=== PATIENT | female | born 1980 | race Caucasian/White ===

== ENCOUNTER 2023-11-06 22:49 | Emergency (ER) | payer OTHER, SELFPAY ==
[2023-11-06 22:54] VITALS: BP 148/93
[2023-11-06 23:01] VITALS: BP 184/145
[2023-11-06 23:04] LABS: Glucose - Point of Care 321 mg/dl (70-99)
[2023-11-06] MEDS: ZOFRAN 4 MG IV (23:14)
[2023-11-06] MEDS: NSS 500 IV (23:15)
[2023-11-06 23:16] LABS: % Basophils 0.3 % (0-2); % Immature Granulocytes 1.1 % (0-0.5); % Lymphocytes 17.9 % (20.5-51.1); % Monocytes 3.9 % (1.7-9.3); % Neutrophils 76.8 % (42.2-75.2); Absolute Immature Granulocytes 0.1 10^3/uL (0-0.05); Absolute Lymphocytes 1.1 10^3/uL (1.2-3.4); Absolute Monocytes 0.2 10^3/uL (0.1-0.6); Absolute Neutrophils 4.8 10^3/uL (1.4-6.5); Hematocrit 48.9 % (37.0-47.0); Hemoglobin 15.8 g/dL (12.0-16.0); Mean Corp Hgb Conc. 32.3 g/dL (33.0-37.0); Mean Corpuscular Hgb 28.8 pg (27.0-31.0); Mean Corpuscular Volume 89.2 fL (81.0-99.0); Mean Platelet Volume 9.6 fL (7.4-10.4); Nucleated Red Blood Cells % 0 %; Platelet Count 523 10^3/uL (130-400); Red Blood Cell Count 5.48 10^6/uL (4.20-5.40); Red Cell Dist. Width 13.2 % (11.5-14.5); White Blood Cell Count 6.2 10^3/uL (4.8-10.8)
--- NOTE | 2023-11-06 23:19 | ED.GENMED ---
History of Present Illness
<MIGUEL Dixon - Last Filed: 11/07/23 05:04>
General
Chief Complaint: Abdominal Symptoms
Source: patient
Exam Limitations: none
Time Seen by Provider: 11/06/23 23:00
History of Present Illness
History of Present Illness:
43 y/o F with history of [place] presents to ED complaining of nausea and vomiting x 3 days. She reports the vomiting has subsided but she is still feeling nauseous. Patient has been taking Promethazine and Tylenol suppositories for her symptoms.
She also has been drinking water, Gatorade and juice. She reports she took 3L of coca cola around 1930 today to help with nausea and started with shaking and diarrhea. She reports she is having BM in her diaper every 10-15 minutes. She took 20mg of
hydrocortisone around 1900. Patient is also feeling congested and reports her ears feel clogged. She also reporting associated headache. She reports her son was sick with nausea, vomiting and diarrhea a few days ago. Denies dizziness, blurry vision,
or abdominal pain.
If applicable-neuro sx onset
Onset of symptoms known: Yes
Date of onset of symptoms: 11/03/23
Past History
<MIGUEL Dixon - Last Filed: 11/07/23 05:04>
Past History
ED Past Medical History: Other (Addisons)
ED Past Surgical History: Gynecological
Social History
Tobacco: Non-smoker
Alcohol: None
Review of Systems
<MIGUEL Dixon - Last Filed: 11/07/23 05:04>
Review of Systems
Allergies reviewed?: Yes
All Other Systems: ROS reviewed and negative except as documented in HPI and ROS
Constitutional: Reports chills
EENT: Reports other (congestion)
Respiratory: Reports no symptoms
Cardiac: Reports no symptoms
ABD/GI: Reports nausea, vomiting and diarrhea
: Reports frequency and incontinence
Musculoskeletal: Reports no symptoms
Skin: Reports no symptoms
Neurological: Reports headache
Endocrine: Reports polyuria
Hematologic/Lymphatic: Reports no symptoms
Psychiatric: Reports no symptoms
Phy Exam
<MIGUEL Dixon - Last Filed: 11/07/23 05:04>
General Physical Exam
General Presentation: well appearing and no apparent distress
General age: appears stated age
General Skin: warm and dry
General Habitus: normal
General Mental: alert
General Hydration: appears well hydrated
ENT Exam
ENT Exam: EOMI, TM's normal, pharynx normal and neck supple
Eye Exam
Eye Exam: PERRL, EOMI and conjunctiva normal
Cardiovascular Exam
Cardiovascular Exam: regular rate/rhythm, no edema, no gallop, no murmur and normal peripheral pulses
Pulmonary Exam
Pulmonary Exam: lungs clear, no respiratory distress, no rales, no crackles and no rhonchi
Gastrointestinal Exam
Gastrointestinal Exam: normal bowel sounds, non tender, soft and non distended
Neurological Exam
Neurological Exam: alert and oriented x3
Musculoskeletal Exam
Musculoskeletal Exam: full ROM
Skin Exam
Skin Exam: normal color, warm/dry and no rash
Psychiatric Exam
Psychiatric Exam: anxious
Course
<MIGUEL Dixon - Last Filed: 11/07/23 05:04>
Orders/Labs/Results
Orders:
Orders
11/06/23 23:03
Electrocardiogram (*1) Urgent
Reason for Study: Tachycardia
EKG- Treatment ONCE
11/06/23 23:06
B-Hydroxybutyrate Urgent
Complete Blood Count/With Diff Urgent
Comprehensive Metabolic Panel Urgent
HCG, Serum Qualitative Screen Urgent
11/06/23 23:08
0.9% Sodium Chloride 500 ml [Nss] 500 ml IV BOLUS
Ondansetron Injectable [Zofran] 4 mg IV NOW STA
Test Result ONCE
11/06/23 23:09
Urinalysis Reflex To Culture Urgent
11/06/23 23:18
Troponin I Urgent
11/06/23 23:43
TSH Reflex To Free T4 Urgent
11/07/23 02:52
Complete Blood Count/With Diff Urgent
Comprehensive Metabolic Panel Urgent
11/07/23 05:15
Prednisone [Deltasone] 50 mg PO NOW STA
Abnormal Lab Results
11/06/23 11/06/2324
23:02 23:06 02:52
RBC 5.48 H 10^6/uL 3.84 L 10^6/uL
(4.20-5.40) (4.20-5.40)
Hgb 11.1 L D g/dL
(12.0-16.0)
Hct 48.9 H % 33.5 L %
(37.0-47.0) (37.0-47.0)
MCHC 32.3 L g/dL
(33.0-37.0)
Plt Count 523 H 10^3/uL
(130-400)
Abs Immat Gran (auto) 0.1 H 10^3/uL 0.1 H 10^3/uL
(0-0.05) (0-0.05)
Absolute Lymphs (auto) 1.1 L 10^3/uL 0.8 L 10^3/uL
(1.2-3.4) (1.2-3.4)
Immature Gran % 1.1 H % 1.0 H %
(0-0.5) (0-0.5)
Neutrophils % 76.8 H % 77.9 H %
(42.2-75.2) (42.2-75.2)
Lymphocytes % 17.9 L % 13.7 L %
(20.5-51.1) (20.5-51.1)
Sodium 150 H mmol/L
(135-145)
Chloride 120 H mmol/L 112 H mmol/L
(98-107) (98-107)
Carbon Dioxide 12 L* mmol/L 12 L* mmol/L
(22-30) (22-30)
Creatinine 1.1 H mg/dL
(0.6-1.0)
Glucose 342 H mg/dl 138 H mg/dl
(70-99) (70-99)
Calcium 10.9 H mg/dl
(8.4-10.2)
Total Protein 10.0 H g/dl
(6.3-8.2)
Albumin 5.3 H g/dl
(3.5-5.0)
POC Glucose 321 H mg/dl
(70-99)
11/07/23 02:52
11/07/23 02:52
Vital Signs
Initial and Last Documented VS:
Initial Vital Signs
BP
148/93
11/06/23 22:54
Last Documented Vital Signs
Temp Pulse Resp BP Pulse Ox
97.1 F 91 18 146/89 99
11/06/23 23:28 11/07/23 02:05 11/07/23 02:05 11/07/23 02:05 11/07/23 02:05
<Juventino Kiran, DO - Last Filed: 11/07/23 05:51>
Orders/Labs/Results
Orders:
Orders
11/06/23 23:03
Electrocardiogram (*1) Urgent
Reason for Study: Tachycardia
EKG- Treatment ONCE
11/06/23 23:06
B-Hydroxybutyrate Urgent
Complete Blood Count/With Diff Urgent
Comprehensive Metabolic Panel Urgent
HCG, Serum Qualitative Screen Urgent
11/06/23 23:08
0.9% Sodium Chloride 500 ml [Nss] 500 ml IV BOLUS
Ondansetron Injectable [Zofran] 4 mg IV NOW STA
Test Result ONCE
11/06/23 23:09
Urinalysis Reflex To Culture Urgent
11/06/23 23:18
Troponin I Urgent
11/06/23 23:43
TSH Reflex To Free T4 Urgent
11/07/23 02:52
Complete Blood Count/With Diff Urgent
Comprehensive Metabolic Panel Urgent
11/07/23 05:15
Prednisone [Deltasone] 50 mg PO NOW STA
Abnormal Lab Results
11/06/23 11/06/2324
23:02 23:06 02:52
RBC 5.48 H 10^6/uL 3.84 L 10^6/uL
(4.20-5.40) (4.20-5.40)
Hgb 11.1 L D g/dL
(12.0-16.0)
Hct 48.9 H % 33.5 L %
(37.0-47.0) (37.0-47.0)
MCHC 32.3 L g/dL
(33.0-37.0)
Plt Count 523 H 10^3/uL
(130-400)
Abs Immat Gran (auto) 0.1 H 10^3/uL 0.1 H 10^3/uL
(0-0.05) (0-0.05)
Absolute Lymphs (auto) 1.1 L 10^3/uL 0.8 L 10^3/uL
(1.2-3.4) (1.2-3.4)
Immature Gran % 1.1 H % 1.0 H %
(0-0.5) (0-0.5)
Neutrophils % 76.8 H % 77.9 H %
(42.2-75.2) (42.2-75.2)
Lymphocytes % 17.9 L % 13.7 L %
(20.5-51.1) (20.5-51.1)
Sodium 150 H mmol/L
(135-145)
Chloride 120 H mmol/L 112 H mmol/L
(98-107) (98-107)
Carbon Dioxide 12 L* mmol/L 12 L* mmol/L
(22-30) (22-30)
Creatinine 1.1 H mg/dL
(0.6-1.0)
Glucose 342 H mg/dl 138 H mg/dl
(70-99) (70-99)
Calcium 10.9 H mg/dl
(8.4-10.2)
Total Protein 10.0 H g/dl
(6.3-8.2)
Albumin 5.3 H g/dl
(3.5-5.0)
POC Glucose 321 H mg/dl
(70-99)
11/07/23 02:52
11/07/23 02:52
Vital Signs
Initial and Last Documented VS:
Initial Vital Signs
BP
148/93
11/06/23 22:54
Last Documented Vital Signs
Temp Pulse Resp BP Pulse Ox
97.1 F 91 18 146/89 99
11/06/23 23:28 11/07/23 02:05 11/07/23 02:05 11/07/23 02:05 11/07/23 02:05
<MIGUEL Dixon - Last Filed: 11/07/23 05:04>
MDM/Problems Addressed
Differential Diagnosis Includes:
Gastroenteritis
Sinusitis
DKA?
<Juventino Kiran DO - Last Filed: 11/07/23 05:51>
*Critical Care Note
Total Time (30-74mins, 75-104mins- exclusive of procedures): Not Applicable
<Juventino Kiran DO - Last Filed: 11/07/23 05:51>
Update Note
Update Note:
11/07/2023 0311 AM: Patient resting,
ED Attending Note
<MIGUEL Dixon - Last Filed: 11/07/23 05:04>
-
Portions of this chart may have been created with voice recognition software.� Occasional wrong word or��sound alike� substitutions may have occurred due to the inherent limitations of voice recognition software.
<Juventnio Kiran DO - Last Filed: 11/07/23 05:51>
ED Attending Note
Patient seen and examined by attending physician: Yes
I performed the substantive portion of visit, reviewed & personally made and approve the management plan that is documented in note by myself or MOISES.: Yes
ED Attending Note:
Pleasant 43-year-old female presents with nausea with vomiting for the last 3 days. She states that while not acutely vomiting, she still feels nauseated. Patient has a history of [place]. She has been drinking apple juice, Gatorade, and water
to dawn off dehydration. She was at the pharmacy today and the pharmacist advised her to try drinking Coca-Cola. She has consumed 3 L several Coca-Cola and attempt for nausea. She has been taking promethazine with some relief. She states that
her son had similar symptoms a few days ago. Patient was seen in conjunction with the PA student. I have reviewed and agree with the history and treatment plan presented. On my independent physical exam, patient is awake, alert, and oriented x3,
heart is regular rate rhythm. Lungs clear to auscultation bilaterally without wheezes rales or rhonchi. Abdomen soft with good bowel sounds x 4 quadrants. It is nondistended. Skin is warm and dry. Patient is very energetic and has pressured
speech.
Vital signs are stable. Patient not hypoxic
Nursing note reviewed. I agree with nursing documentation up to this point in time.
Home Meds and allergies reviewed.
NUMBER AND COMPLEXITY OF PROBLEMS ADDRESSED AT THE ENCOUNTER
� Chronic conditions affecting care: Abiodun's disease, hypothyroid
� Acute Exacerbation and/or Progression of Chronic Illness:
� Differential Diagnosis includes:
AMOUNT AND/OR COMPLEXITY OF DATA TO BE REVIEWED AND ANALYZED
I performed an independent evaluation of the following and my interpretation is:
EKG:
CT:
X-rays:
Ultrasound:
Laboratory Studies:
Other:
Review of other/old records:
Clinical information was obtained by an independent historian:
Prescriptions/Medications Considered but not given:
Further testing considered but not performed:
RISK OF COMPLICATIONS AND/OR MORBIDITY OR MORTALITY OF PATIENT MANAGEMENT
Social determinants of health affecting care: Good Social Support
Discussion with other providers:
Escalation of care including admission/observation vs risk of discharge considered:
CRITICAL CARE NOTE:
Total Time (exclusive of procedures):
Update:
Discharge Plan
Departure
Patient Disposition: Home (Routine Discharge)
Date of Disposition: 11/07/23
Time of Disposition: 05:51
Patient with high blood pressure during this ER visit?: No
Condition: Good
Covid-19: Not Applicable
Discharge Problem:
Nausea & vomiting, Diarrhea
Instructions: Diarrhea in adolescents and adults, Dehydration, Adult (DC), Nausea and Vomiting, Adult (DC), BLOOD PRESSURE
Prescriptions:
New
prednisone 50 mg tablet
50 mg PO DAILY Qty: 4 0RF
No Action
promethazine 50 mg suppository
50 mg TX Q6H PRN (Reason: nausea) Qty: 12 0RF
Referrals:
Mele Martinez DO [Family Provider] -
Jose Angel Lozano MD [Consulting Staff] - Call in 1-3 days for appt
Activity Restrictions/Additional Instructions:
It was a pleasure meeting you and taking part in your care. We hope for your continued healing and wellness.
Please read discharge instructions in their entirety. However, they are for general education and may not describe your exact diagnosis at discharge. Information on your ER visit and medical conditions were discussed with you along with appropriate
follow up information...
If indicated, please take your medications as instructed and indicated on discharge paperwork.
Please schedule a follow up appointment as directed. Call to schedule an appointment
Please return to the emergency department with ANY change in, persisting, or worsening of symptoms. If any of your symptoms do not improve, or persist, or become more severe within 6-12 hours, please return to the emergency department for further
care.
Please return to the emergency department if you develop a headache, neck pain/stiffness, fever greater than 100.4F, chest pain, shortness of breath, persistent nausea, vomiting, slurred speech, difficulty walking, numbness/tingling, weakness, signs
of infection or any other symptoms that are worrisome to you.
If you have any questions or concerns please do not hesitate to call the Hospital at or E-mail me directly at [email or web address]
Hospital Transfer
I certify that the patient requires transfer: No
Interventions
Interventions:
*Risk Screen - Suicide Last Done: 11/06/23 23:29
*General Assessment Last Done: 11/06/23 23:29
*Neglect/Abuse Screening Last Done: 11/06/23 23:29
*ED COVID-19 Vaccine History Last Done: 11/07/23 00:02
PJ-[id number] Assessment Last Done: 11/06/23 23:00
Discharge Date and Time
Print Language: OCCITAN
[2023-11-06 23:27] LABS: HCG, Serum Qualitative Screen Negative
[2023-11-06 23:28] VITALS: BP 184/145
[2023-11-06 23:31] LABS: ALT (SGPT) 29 U/L (0-35); AST (SGOT) 36 U/L (14-36); Albumin 5.3 g/dl (3.5-5.0); Alkaline Phosphatase 78 U/L (38-126); Blood Urea Nitrogen 7 mg/dl (7-17); Calcium 10.9 mg/dl (8.4-10.2); Carbon Dioxide 12 mmol/L (22-30); Chloride 120 mmol/L (98-107); Glucose 342 mg/dl (70-99); Sodium 150 mmol/L (135-145); Total Bilirubin 0.4 mg/dl (0.2-1.3); eGFR > 60.00
[2023-11-06 23:37] LABS: B-Hydroxybutyrate 0.14 mmol/L (0.02-0.27)
[2023-11-06 23:47] LABS: Troponin I < 0.012 ng/ml
[2023-11-07 00:03] LABS: Potassium 4.6 mmol/L (3.5-5.1)
[2023-11-07 00:59] LABS: TSH Reflex To Free T4 4.07 uIU/ml (0.47-4.68)
[2023-11-07 02:05] VITALS: BP 146/89
[2023-11-07 03:09] LABS: % Basophils 0.2 % (0-2); % Lymphocytes 13.7 % (20.5-51.1); % Monocytes 7.2 % (1.7-9.3); % Neutrophils 77.9 % (42.2-75.2); Absolute Immature Granulocytes 0.1 10^3/uL (0-0.05); Absolute Lymphocytes 0.8 10^3/uL (1.2-3.4); Absolute Monocytes 0.4 10^3/uL (0.1-0.6); Absolute Neutrophils 4.8 10^3/uL (1.4-6.5); Hematocrit 33.5 % (37.0-47.0); Hemoglobin 11.1 g/dL (12.0-16.0); Mean Corp Hgb Conc. 33.1 g/dL (33.0-37.0); Mean Corpuscular Hgb 28.9 pg (27.0-31.0); Mean Corpuscular Volume 87.2 fL (81.0-99.0); Mean Platelet Volume 9.9 fL (7.4-10.4); Nucleated Red Blood Cells % 0 %; Platelet Count 333 10^3/uL (130-400); Red Blood Cell Count 3.84 10^6/uL (4.20-5.40); Red Cell Dist. Width 13.3 % (11.5-14.5); White Blood Cell Count 6.1 10^3/uL (4.8-10.8)
[2023-11-07 03:24] LABS: ALT (SGPT) 18 U/L (0-35); AST (SGOT) 24 U/L (14-36); Albumin 3.5 g/dl (3.5-5.0); Alkaline Phosphatase 48 U/L (38-126); Blood Urea Nitrogen 7 mg/dl (7-17); Calcium 8.4 mg/dl (8.4-10.2); Carbon Dioxide 12 mmol/L (22-30); Chloride 112 mmol/L (98-107); Glucose 138 mg/dl (70-99); Potassium 3.7 mmol/L (3.5-5.1); Sodium 138 mmol/L (135-145); Total Bilirubin 0.3 mg/dl (0.2-1.3); Total Protein 6.3 g/dl (6.3-8.2); eGFR > 60.00
[2023-11-07] MEDS: DELTASONE 50 MG PO (05:28)
== END 2023-11-07 06:40 | disposition home or self-care (01) ==
LOC: EMR 22:49
PROVIDERS: EMERGENCY PHYSICIAN Student in an Organized Health Care Education/Training Program; FAMILY PHYSICIAN Family Medicine
DX: R11.2 Nausea with vomiting, unspecified (principal); R19.7 Diarrhea, unspecified; E27.1 Primary adrenocortical insufficiency; E03.9 Hypothyroidism, unspecified
CPT/HCPCS: 99284; 96374; 80053; 82010; 82962; 84443; 84484; 84703; 85025; 93005